=== PATIENT | female | born 1960 | race Caucasian/White ===

== ENCOUNTER 2025-08-01 06:32 | Emergency (ER) | payer OTHER ==
[2025-08-01 06:47] VITALS: TEMP 98.1; BMI 32.3
[2025-08-01] MEDS: ASPIRIN 81 MG CHEWABLE TABLETS PO ONE ×2 (08:19→08:35)
[2025-08-01 08:20] LABS: MCHC 32.8 g/dl (32.2-35.5); MEAN CELL VOLUME 89.2 fl (79.4-94.8); MEAN PLT VOLUME 9.2 fl (9.4-12.3); RDW 12.5 % (12.4-16.4)
[2025-08-01] MEDS ORDERED: ASPIRIN 81 MG CHEWABLE TABLETS ONE (08:21)
[2025-08-01] MEDS ORDERED: MAG HYDROX/AL HYDROX/SIMETH 30 ML UNIT-DOSE CUP ONE (08:22)
[2025-08-01] MEDS ORDERED: FAMOTIDINE 20 MG/50 ML IVPB 20 MG/50 ML MG IVPB ONE (08:22)
[2025-08-01] MEDS ORDERED: ACETAMINOPHEN INJECTION 100 ML ONE (08:22)
[2025-08-01] MEDS: ACETAMINOPHEN 1000 MG/100 ML BAG IVPB ONE (08:35)
[2025-08-01] MEDS: FAMOTIDINE 20 MG/50 ML IVPB 20 MG/50 ML MG IVPB ONE (08:35)
[2025-08-01] MEDS: MAG HYDROX/AL HYDROX/SIMETH 30 ML UNIT-DOSE CUP PO ONE (08:35)
[2025-08-01 08:42] LABS: INR 0.95 (0.83-1.09); PROTHROMBIN TIME (PATIENT) 10.4 SEC (9.7-13.0)
[2025-08-01 08:45] LABS: ACTIVATED PTT 29.7 SECONDS (25.2-36.5); GLUCOSE,RANDOM 93.0 mg/dL (74-106); TOT PROT 7.0 g/dl (6.4-8.2)
[2025-08-01 08:46] LABS: CO2 26.0 mmol/L (21-32)
[2025-08-01 08:48] LABS: ALK PHOS 90.0 U/L (40-150)
[2025-08-01] MEDS: SODIUM CHLORIDE 0.9% 500 ML INFUS.BAG IV ONE (08:49)
[2025-08-01 08:50] LABS: CREATININE 0.66 mg/dL (0.55-1.3); SGOT/AST 36.0 U/L (5-34); SGPT/ALT 25.0 U/L (0-55)
[2025-08-01 09:12] LABS: HIV INTERPRETATION NEGATIVE (NEGATIVE)
[2025-08-01 09:13] LABS: HCV DIAGNOSTIC IN-HOUSE W/RFLX NON-REACTIVE (NONREACTIVE)
[2025-08-01 09:49] VITALS: BP 121/60; PULSE 56; RESP 12
== END 2025-08-01 09:48 | disposition home or self-care (01) ==
LOC: JER 06:32
PROC: 3E033GC Introduction of Other Therapeutic Substance into Peripheral Vein, Percutaneous Approach (ICD-10-PCS; principal; 2025-08-01)
PROC: 3E033NZ Introduction of Analgesics, Hypnotics, Sedatives into Peripheral Vein, Percutaneous Approach (ICD-10-PCS; 2025-08-01)
DX: R07.9 Chest pain, unspecified (principal); R06.00 Dyspnea, unspecified
CPT/HCPCS: 36415; 71045-TC-FY; 80053; 83690; 83735; 84484; 85027; 85610; 85730; 86803; 87389; 87637-QW; 93005; 93010; 93308; 99285-25